=== PATIENT | male | born 1955 | race Caucasian/White ===

== ENCOUNTER 2020-09-23 11:27 | Outpatient (CLI) | payer BC | END 2020-09-23 11:28 | disposition home or self-care (01) | LOC: ULT 11:27 | PROVIDERS: ATTEND Family Medicine | DX: R53.83 Other fatigue (principal) | CPT/HCPCS: 93306 ==

== ENCOUNTER 2022-12-30 07:06 | Outpatient (CLI) | payer MEDICARE ==
[2022-12-30] MEDS ORDERED: Iopamidol-370 76% 500 ML MDV (1 ML CHARGE) ONE (13:55)
== END 2022-12-30 07:07 | disposition home or self-care (01) ==
LOC: BICCT 07:06
PROVIDERS: ATTEND Otolaryngology Plastic Surgery within the Head & Neck
DX: R22.1 Localized swelling, mass and lump, neck (principal)
CPT/HCPCS: 70491; 82565; Q9967